=== PATIENT | female | born 1995 | race Caucasian/White ===

== ENCOUNTER 2022-01-04 15:36 | Emergency (ER) | payer MEDICAID, SELFPAY ==
--- NOTE | ~2022-01-04 | XR_ITS ---
EXAMINATION: XR hand RT min 3V DATE: 01/04/2022 18:31 INDICATION: Right hand pain at the third digit TECHNIQUE: Posteroanterior, oblique and lateral views of the right hand were obtained. COMPARISON: None. FINDINGS: Alignment is normal. No fracture. Joint spaces are normal. No cortical erosions or periosteal reactio n. Mild soft tissue swelling at the second and third digits.. IMPRESSION: 1. No osseous abnormality. Reviewed, dictated and finalized at location A. [facility] IMPRESSION: 1. No osseous abnormality.
[2022-01-04 15:50] VITALS: BP 171/96; PULSE 104; RESP 12; TEMP 36.7; O2SAT 98
--- NOTE | 2022-01-04 15:50 | PC.NURSE ---
Sitter at bedside. pt. placed in green scrubs and belongings in two bags locked in cabinet closest to room 3. Pt. had two hundred dollars, confirmed with Tech. josesito Hayward, phone, and clothes placed in belonging bags.
--- NOTE | 2022-01-04 16:00 | PC.NURSE ---
pt. requesting something for anxiety. VORB ERP Jones PO 2mg Ativan.
[2022-01-04] MEDS: LORazepam (*CRX) 1 MG TABLET 2 MG PO (16:04)
--- NOTE | 2022-01-04 16:08 | PC.NURSE ---
pt. urinated upon arrival unable to obtained urine sample at this time.
--- NOTE | 2022-01-04 16:10 | PC.NURSE ---
Sitter at bedside.
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
--- NOTE | 2022-01-04 16:51 | PC.NURSE ---
pt. pacing hallway and reports pacing helps anxiety. pt. agreed to pace in room 15.
--- NOTE | 2022-01-04 16:55 | PC.NURSE ---
pt. requesting RN confirm pt. dog is safe. RN to call Nicholas at [phone]. states he will try and find dog.
[2022-01-04 17:13] LABS: Add Urine Microscopic? YES; Appearance Urine Clear (Clear); Bacteria Urine Trace /hpf; Bilirubin Urine Negative (Negative); Blood Urine Negative (Negative); Color Urine Straw (Yellow); Glucose Urine UA Negative (Negative); Ketones Urine 1+ mg/dL (Negative); Leukocyte Esterase Ur Negative LEU/UL (Negative); Mucus Urine Rare /lpf; Nitrate Urine Negative (Negative); Protein Urine Negative (Negative); Squamous Epithelial Cell Urine Occasional /hpf (Few); Urobilinogen Urine Negative mg/dL (<2.0); WBC Urine 0-3 /hpf
--- NOTE | 2022-01-04 17:17 | PC.NURSE ---
pt. refusing blood draw at this time. manager mobility at pt. bedside.
[2022-01-04 17:30] LABS: Specific Grav Ur 1.003 (1.001-1.035)
[2022-01-04 17:32] LABS: Barbiturate Screen Urine Negative (Negative); Benzodiazepines Screen Urine Negative (Negative)
--- NOTE | 2022-01-04 17:42 | PC.NURSE ---
pt. agreed to blood draw.
[2022-01-04 17:54] LABS: Basophils Percent Auto 0.4 % (0.2-1.2); Eosinophils Percent Auto 0.2 % (0-4.4); Hematocrit 43.7 % (37.0-47.0); Hemoglobin 14.7 g/dL (12.0-15.0); Immature Granulocyte Absolute 0.03 K/mm3 (0.00-0.031); Immature Granulocyte Percent A 0.3 % (0-0.5); Lymphocytes Absolute Auto 2.67 K/mm3 (0.9-3.2); Lymphocytes Percent Auto 23.8 % (18.3-44.2); Mean Corpuscular HGB Conc 33.6 g/dl (32-36); Mean Corpuscular Hemoglobin 30.2 pg (26-34); Mean Corpuscular Volume 89.7 fl (80-100); Mean Platelet Volume 11.4 fl (7.4-10.4); Monocytes Absolute Auto 0.4 K/mm3 (0.1-0.6); Monocytes Percent Auto 3.7 % (2.6-8.5); Neutrophils Percent Auto 71.6 % (45.5-73.1); Platelet Count Result 243 k/mm3 (150-375); Red Blood Count 4.87 M/mm3 (4.2-5.4); Red Cell Distribution Width 13.2 % (11.5-14.5); White Blood Count 11.2 K/mm3 (4.5-10.0)
[2022-01-04 17:56] LABS: Amphetamine Screen Urine Positive (Negative); Cannabinoid Screen Urine Negative (Negative); Cocaine Screen Urine Positive (Negative); Methadone Screen Urine Negative (Negative); Opiate Screen Urine Negative (Negative); Phencyclidine Screen Urine Negative (Negative)
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
--- NOTE | 2022-01-04 18:00 | PC.NURSE ---
pt. attempted to elope from ed. pt. detained by ed security and brought into room 15 and placed into hard restraints
[2022-01-04 18:03] LABS: Ethanol < 10 mg/dL (<10)
[2022-01-04] MEDS: LORazepam INJ (*CRX) 2 MG/ML VIAL IM (18:05)
[2022-01-04] MEDS: HALOPERIDOL LACTATE 5 MG/ML VIAL IM (18:05)
[2022-01-04] MEDS: diphenhydrAMINE HCl INJ 50 MG/ML VIAL 25 MG IM (18:05)
[2022-01-04 18:06] LABS: Alanine Aminotransferase 24 U/L (4-35); Albumin Level 4.8 g/dL (3.5-5.1); Alkaline Phosphatase 106 U/L (38-126); Anion Gap 7 mmol/L (8-16); Aspartate Amino Transferase 30 U/L (14-36); Bilirubin,Total 0.3 mg/dL (0.2-1.3); Blood Urea Nitrogen 7 mg/dL (7-17); Calcium 9.2 mg/dL (8.4-10.2); Carbon Dioxide 28 mmol/L (22-30); Chloride 103 mmol/L (98-107); Estimated CRCL calculation 176 ml/min; Estimated Glomerular Filt Rate > 60; Glucose 145 mg/dL (65-110); Sodium 138 mmol/L (137-145)
[2022-01-04 18:13] LABS: Acetaminophen < 10 ug/mL (10-30); Salicylate < 1.0 mg/dL (2-20)
[2022-01-04 18:15] VITALS: BP 120/80; PULSE 109; RESP 14; O2SAT 97
[2022-01-04 19:15] VITALS: BP 105/68; PULSE 95; RESP 18; O2SAT 99
[2022-01-05 05:01] VITALS: BP 131/78; PULSE 79; RESP 20; O2SAT 100
--- NOTE | 2022-01-05 07:02 | PC.NURSE ---
community health nurse ordered a room tray at [id number]
[2022-01-05 08:00] VITALS: BP 115/73; PULSE 96; RESP 18; TEMP 36.8; O2SAT 100
[2022-01-05 11:10] VITALS: BP 118/78; PULSE 76; RESP 16; TEMP 36.3; O2SAT 98
[2022-01-05 13:41] LABS: SARS-CoV-2 RNA PCR Negative
[2022-01-05] MEDS: LORazepam (*CRX) 1 MG TABLET 2 MG PO (19:37)
--- NOTE | 2022-01-05 23:22 | PC.NURSE ---
Assuming care of pt.
[2022-01-05 23:28] VITALS: BP 109/65; PULSE 75; RESP 16; O2SAT 100
[2022-01-06 08:35] VITALS: BP 122/74; PULSE 129; RESP 16; TEMP 36.5; O2SAT 98
[2022-01-06] MEDS: LORazepam (*CRX) 0.5 MG TABLET PO (08:55)
[2022-01-06 09:24] VITALS: PULSE 110; RESP 16; O2SAT 99
[2022-01-06 12:47] VITALS: BP 121/79; PULSE 109; RESP 16; O2SAT 100
[2022-01-06] MEDS: LORazepam (*CRX) 1 MG TABLET PO (12:47)
--- NOTE | 2022-01-06 13:57 | PC.NURSE ---
report to EMS, pt left without incident
== END 2022-01-06 13:57 ==
PROVIDERS: Emergency Medicine; Physician Assistant; Emergency Provider Emergency Medicine
DX: R45.851 Suicidal ideations (principal); F19.10 Other psychoactive substance abuse, uncomplicated; Z20.822 Contact with and (suspected) exposure to COVID-19
CPT/HCPCS: 36415; 73130; 80053; 80307; 81001; 81025; 84443; 85025; 96372; 99285; A9270; C9803; J1200; J1630; J2060; U0003; U0005